=== PATIENT | female | born 1940 | race Caucasian/White ===

== ENCOUNTER → 2017-01-07 09:13 | Emergency (ER) | payer MEDICARE, OTHER ==
[~2017-01-07 09:13] MED LIST: Ibuprofen TAB* 600 MG PO ONE
--- NOTE | 2017-01-07 10:21 | ED ---
Lower Extremity - HPI Summary HPI Summary: 76 y/o female with ~ 2 week history of L knee pain, increased over past 24 hours , unable to walk due to pain currently, denies, fever, chills, no other medical problems, medications. No trauma, injury, no prior complaints. had a complaint of right knee pain in past, was seen by primary physician. Residing in [place] currently with spouse. ? swelling of L knee. left knee "Gave out" on her today, has not taken any pain medication for knee - History of Current Complaint Chief Complaint: EDExtremityLower Stated Complaint: LT KNEE PAIN/CANT WALK Time Seen by Provider: 01/07/17 10:01 Hx Obtained From: Patient, Family/[employer] - Mechanism Of Injury: Unknown Onset of Pain: Days Onset/Duration: Weeks Severity Initially: Moderate Severity Currently: Moderate Pain Intensity: 7 Pain Scale Used: 0-10 Numeric Timing: Intermittent - with movement Character Of Pain: Sharp - with mvoement, Dull - @ rest Associated Signs And Symptoms: Positive: Knee Pain Aggravating Factor(s): Standing, Ambulation Alleviating Factor(s): Rest Able to Bear Weight: Yes - painfully - Allergies/Home Medications Allergies/Adverse Reactions: Allergies Allergy/AdvReac Type Severity Reaction Status Date / Time No Known Allergies Allergy Verified 01/07/17 09:20 PMH/Surg Hx/FS Hx/Imm Hx Previously Healthy: Yes Infectious Disease History: Yes Infectious Disease History: Denies: Traveled Outside the [place] in Last 30 Days Review of Systems Positive: Arthralgia, Myalgia, Decreased ROM All Other Systems Reviewed And Are Negative: Yes Physical Exam Triage Information Reviewed: Yes Vital Signs On Initial Exam: Initial Vitals Temp Pulse Resp BP Pulse Ox 98.0 F 62 20 132/53 94 01/07/17 09:17 01/07/17 09:17 01/07/17 09:17 01/07/17 09:17 01/07/17 09:17 Vital Signs Reviewed: Yes Appearance: Positive: Well-Appearing, No Pain Distress - at rest, Well-Nourished Skin: Positive: Warm, Skin Color Reflects Adequate Perfusion Musculoskeletal: Positive: Strength/ROM Intact - R LE, Other - neg ant/ post drawer, neg apley, neg homans, tenderness at MJL, LJL, no instability with rhett. vag stresses, minimal joint effusion appreciated, pain with palpation posterior knee, ROM 0-110 degrees passively. Patient able to have ataxic gait after motrin given, gait improves with increased walking. no ecchymosis, erythema noted. no warmth Diagnostics - Vital Signs Vital Signs Temp Pulse Resp BP Pulse Ox 01/07/17 09:17 98.0 F 62 20 132/53 94 - Laboratory Lab Statement: Any lab studies that have been ordered have been reviewed, and results considered in the medical decision making process. Lower Extremity Course/Dx - Course Course Of Treatment: radiograph- negative for fracture, script for PT, follow up with ortho, motrin 600 every 6-8 hours x 2 days given. - Diagnoses Differential Diagnosis/HQI/PQRI: Positive: Arthritis Provider Diagnoses: Osteoarthritis of left knee Discharge - Discharge Plan Condition: Fair Disposition: HOME Prescriptions: Ibuprofen TAB* [Motrin TAB* 600 MG] 600 mg PO Q8H #6 tab Meds/Orders/Equipment: Physical Therapy Location: Determined By Patient Orthotic Device/Brace Location: Determined By Patient Orthotic Device/Brace Location: Determined By Patient Patient Education Materials: Osteoarthritis (ED), RICE Therapy (ED) Referrals: Raoul Brewster MD [Medical Doctor] - Ifrah Melendez MD [Primary Care Provider] - Additional Instructions: - FOllow up with orthopedist if no improvement within 24-48 hours - Motrin 600mg every 8 hours for 2 days to decrease swelling, pain - Tylenol as needed for pain - Increase walker, use walker for unsteadiness - Physical therapy - Elevate leg, ice knee 2-3 times a day to decrease swelling, pain - Brace if needed for pain
--- NOTE | 2017-01-07 11:12 | RAD ---
INDICATION: Left knee pain. TECHNIQUE: 4 views of the left knee were obtained. FINDINGS: The bones are in normal alignment. No fracture is seen. There is a small joint effusion present. There is mild to moderate osteoarthritic change in the medial and patellofemoral compartments. IMPRESSION: 1. JOINT EFFUSION. 2. MILD TO MODERATE OSTEOARTHRITIC CHANGE.
[2017-01-07 11:36] VITALS: BP 150/79
== END | disposition home or self-care (01) ==
LOC: ED 09:13
DX: M17.12 Unilateral primary osteoarthritis, left knee (principal)
CPT/HCPCS: 99281; A9270-GY

== ENCOUNTER 2017-09-17 09:35 | Day surgery (SDC) | payer MEDICARE ==
[~2017-09-17 09:35] MED LIST changes: +Acetaminophen TAB* 325 MG PO PRN; +Buffered Lidocaine 0.9% SYRIN* 5 ML/SYR SYRINGE INTRADERM ONE; -Ibuprofen TAB* 600 MG PO ONE; +Midazolam* 1 MG/ML 2 ML VIAL (2 MG) ONE
[2017-09-17] MEDS ORDERED: Lidocaine 1%* 5 ML VIAL ONE (12:30)
[2017-09-17] MEDS ORDERED: acetaZOLAMIDE TAB* 250 MG ONE (12:30)
[2017-09-17] MEDS ORDERED: Povidone Iodine 5% OPTH* 30 ML BTL ONE (12:30)
[2017-09-17] MEDS ORDERED: Lidocaine 2% EPI 1:200000 MPF*10-20 ML VIAL ONE (12:30)
[2017-09-17] MEDS ORDERED: Neomycin/Polymy/Dex OPTH.SUSP* MAXITROL 0.1% 5 ML ONE (12:30)
[2017-09-17] MEDS ORDERED: Cyclopentolate 1% OPTH.SOL* 2 ML BTL ONE (12:30)
[2017-09-17] MEDS ORDERED: Ketorolac 0.5% OPHTH (NF) 0.5 % 5 ML BTL ONE (12:30)
[2017-09-17] MEDS ORDERED: Phenylephrine 2.5% OPTH.SOL* 2 ML BTL ONE (12:30)
[2017-09-17] MEDS ORDERED: Proparacaine 0.5% OPHTH.SOL* 15 ML BTL ONE (12:30)
[2017-09-17 12:54] VITALS: BP 151/64
--- NOTE | 2017-09-18 09:16 | OP ---
DATE OF OPERATION: 09/17/17 [facility] DATE OF : 44 SURGEON: Trip Bush M.D. PREOPERATIVE DIAGNOSIS: Cataract right eye. POSTOPERATIVE DIAGNOSIS: Cataract right eye. OPERATIVE PROCEDURE: Extracapsular cataract extraction with intraocular lens implant right eye. DESCRIPTION OF PROCEDURE: The patient was brought to the operating room after being given 1/2% Alcaine with epinephrine drops in the preoperative area. The eye was prepped and draped in the usual sterile fashion. Sterile drape and eyelid speculum were placed. Again, topical 1/2% Alcaine with epinephrine was given. A paracentesis incision was made at the 9 o'clock position with the No.75 blade. Clear cornea incision 2.2 x 2.2-mm was created at the 12 o'clock position starting at the anterior limbus using the 2.2-mm keratome. The anterior chamber was irrigated with 0.4 mL of 1% non-preservative intracameral lidocaine and filled with DisCoVisc. A capsulorrhexis was completed using the cystotome and the Utrata forceps. Hydrodissection was performed with balanced salt solution. The lens nucleus was removed with the Phacoemulsification handpiece without incident. Cortex was removed with the irrigation-aspiration handpiece. The capsular bag was re-inflated using DisCoVisc and an [id number] 20.5 implant was inserted with the shooter. The irrigation-aspiration handpiece was used to remove all residual DisCoVisc. The eye was refilled with balanced salt solution and the wound checked and found to be watertight. Topical Maxitrol drops were given. [id number]/[facility] #: [id number] MTDD
== END 2017-09-17 12:37 | disposition home or self-care (01) ==
LOC: OREAST 09:35
PROVIDERS: ATTEND Specialist
DX: H25.813 Combined forms of age-related cataract, bilateral (principal); I10 Essential (primary) hypertension; M19.90 Unspecified osteoarthritis, unspecified site; Z87.891 Personal history of nicotine dependence
CPT/HCPCS: A9270-GY; J2250; V2632

== ENCOUNTER 2017-09-24 10:56 | Day surgery (SDC) | payer MEDICARE ==
[~2017-09-24 10:56] MED LIST changes: -Acetaminophen TAB* 325 MG PO PRN; +Cyclopentolate 1% OPTH.SOL* 2 ML BTL ONE; +Ketorolac 0.5% OPHTH (NF) 0.5 % 5 ML BTL ONE; +Lidocaine 1%* 5 ML VIAL ONE; +Lidocaine 2% EPI 1:200000 MPF*10-20 ML VIAL ONE; -Midazolam* 1 MG/ML 2 ML VIAL (2 MG) ONE; +Neomycin/Polymy/Dex OPTH.SUSP* MAXITROL 0.1% 5 ML ONE; +Phenylephrine 2.5% OPTH.SOL* 2 ML BTL ONE; +Povidone Iodine 5% OPTH* 30 ML BTL ONE; +acetaZOLAMIDE TAB* 250 MG ONE
[2017-09-24] MEDS ORDERED: Midazolam* 1 MG/ML 2 ML VIAL (2 MG) ONE (13:40)
[2017-09-24 14:30] VITALS: BP 146/58
--- NOTE | 2017-09-24 15:21 | OP ---
DATE OF OPERATION: 09/24/2017 - [facility] DATE OF : 1940. SURGEON: Trip Bush M.D. PREOPERATIVE DIAGNOSIS: Cataract left eye. POSTOPERATIVE DIAGNOSIS: Cataract left eye. OPERATIVE PROCEDURE: Extracapsular cataract extraction with intraocular lens implant left eye. DESCRIPTION OF PROCEDURE: The patient was brought to the operating room after being given 1/2% Alcaine with epinephrine drops in the preoperative area. The eye was prepped and draped in the usual sterile fashion. Sterile drape and eyelid speculum were placed. Again, topical 1/2% Alcaine with epinephrine was given. A paracentesis incision was made at the 3 o'clock position with the No.75 blade. Clear cornea incision 2.2 x 2.2-mm was created at the 6 o'clock position starting at the anterior limbus using the 2.2-mm keratome. The anterior chamber was irrigated with 0.4 mL of 1% non-preservative intracameral lidocaine and filled with DisCoVisc. A capsulorrhexis was completed using the cystotome and the Utrata forceps. Hydrodissection was performed with balanced salt solution. The lens nucleus was removed with the Phacoemulsification handpiece without incident. Cortex was removed with the irrigation-aspiration handpiece. The capsular bag was re-inflated using DisCoVisc and an [id number] 21 implant was inserted with the shooter. The irrigation-aspiration handpiece was used to remove all residual DisCoVisc. The eye was refilled with balanced salt solution and the wound checked and found to be watertight. Topical Maxitrol drops were given. [id number]/[facility] #: [id number] [facility]
== END 2017-09-24 14:24 | disposition home or self-care (01) ==
LOC: OREAST 10:56
PROVIDERS: ATTEND Specialist
DX: H25.812 Combined forms of age-related cataract, left eye (principal); I10 Essential (primary) hypertension; M19.90 Unspecified osteoarthritis, unspecified site; Z87.891 Personal history of nicotine dependence; E78.5 Hyperlipidemia, unspecified; K21.9 Gastro-esophageal reflux disease without esophagitis
CPT/HCPCS: A9270-GY; J2250; V2632

== ENCOUNTER 2022-09-08 17:43 | Observation (INO) ==
[2022-09-08] MEDS ORDERED: Iodixanol (CONTRAST) 320 MG/ML 100 ML SDV IV ONE (17:49)
[2022-09-08 17:59] LABS: ABS Basophils 0.1 10^3/uL (0.0-0.1); ABS Eosinophils 0.1 10^3/uL (0.0-0.5); ABS Lymphocytes 1.9 10^3/uL (1.0-4.8); ABS Monocytes 0.8 10^3/uL (0.0-0.9); ABS Neutrophils 4.9 10^3/uL (1.5-7.6); Eosinophil % 1.5 %; Hematocrit 31.2 % (35-45); Hemoglobin 10.6 g/dL (11.5-14.3); Lymphocyte % 24.9 %; Mean Corpuscular Hemoglobin 30.4 pg (27-33); Mean Corpuscular Hgb Conc 34.1 g/dL (31-36); Mean Corpuscular Volume 89.3 fL (80-97); Mean Platelet Volume 8.1 fL (7.5-11.2); Platelet Count 364 10^3/uL (150-450); Red Blood Count 3.49 10^6/uL (3.63-4.92); White Blood Count 7.8 10^3/uL (3.8-11.8)
[2022-09-08 18:09] LABS: Activated Partial Thrombo Time 30.8 seconds (26.0-38.0); INR 1.03 (0.88-1.18)
[2022-09-08 18:41] LABS: Albumin 3.9 g/dL (3.2-5.2); Albumin/Globulin Ratio 1.6 (1-3); Calcium 9.6 mg/dL (8.6-10.3); Creatinine, Serum 1.1 mg/dL (0.51-0.95); Globulin 2.5 g/dL (2-4); HDL Cholesterol 65.1 mg/dL; Potassium 3.8 mmol/L (3.5-5.0); Total Bilirubin 0.5 mg/dL (0.2-1.0); Total Protein 6.4 g/dL (6.4-8.9); eGFR CKD-EPI 50.8 (>60)
[2022-09-08] MEDS ORDERED: Labetalol IV 5 MG/ML 20 ml VIAL IV PUSH ONE ×3 (19:10→21:41)
[2022-09-08 21:32] LABS: C Reactive Protein 2.25 mg/L (<8.01)
[2022-09-08 22:39] LABS: Erythrocyte Sed Rate 21 mm/Hr (0-29)
[2022-09-09] MEDS ORDERED: Saline NASAL SPRAY 0.65% BTL BOTH NARES PRN (01:06)
[2022-09-09 01:14] LABS: Urine Appearance Clear; Urine Bilirubin Negative (Negative); Urine Blood Negative (Negative); Urine Color Yellow; Urine Glucose Negative (Negative); Urine Ketones Negative (Negative); Urine Nitrite Negative (Negative); Urine Protein Negative (Negative); Urine Specific Gravity 1.049 (1.002-1.030); Urine Urobilinogen Negative (Negative)
[2022-09-09 05:38] LABS: ABS Eosinophils 0.1 10^3/uL (0.0-0.5); ABS Lymphocytes 1.5 10^3/uL (1.0-4.8); ABS Monocytes 0.8 10^3/uL (0.0-0.9); ABS Neutrophils 5.8 10^3/uL (1.5-7.6); Eosinophil % 0.7 %; Hematocrit 26.7 % (35-45); Hemoglobin 9.2 g/dL (11.5-14.3); Lymphocyte % 18.3 %; Mean Corpuscular Hemoglobin 31.2 pg (27-33); Mean Corpuscular Hgb Conc 34.5 g/dL (31-36); Mean Corpuscular Volume 90.5 fL (80-97); Mean Platelet Volume 7.9 fL (7.5-11.2); Platelet Count 307 10^3/uL (150-450); Red Blood Count 2.96 10^6/uL (3.63-4.92); White Blood Count 8.2 10^3/uL (3.8-11.8)
[2022-09-09 06:16] LABS: Calcium 8.8 mg/dL (8.6-10.3); Creatinine, Serum 0.99 mg/dL (0.51-0.95); Magnesium 1.7 mg/dL (1.9-2.7); Potassium 3.8 mmol/L (3.5-5.0); eGFR CKD-EPI 57.6 (>60)
[2022-09-09] MEDS ORDERED: Magnesium Sulfate 2 gm BAG 2 GM/50 ML BAG IVPB ONE (07:13)
[2022-09-09] MEDS ORDERED: NON FORMULARY MED (Losartan-Hydrochlorothiazide 50-12.5 mg Tablet) PO SCH (09:45)
[2022-09-09 18:21] VITALS: BP 161/86
== END 2022-09-09 18:21 | disposition home or self-care (01) ==
LOC: ED 17:43 → INTOOBSV 20:19 → EDHOLD 20:19 → SUATTDRO 20:19 → EDHOLD 09-09 18:20
PROVIDERS: ADMIT Internal Medicine; ATTEND Internal Medicine